=== PATIENT | male | born 1955 ===

== ENCOUNTER → 2017-06-16 | Outpatient (CLI) | payer OTHER ==
[~2017-06-16] VITALS: Ht 172.7 cm; Wt 60.8 kg
[~2017-06-16] MED LIST: AYR SALINE NA14.1 GM NASAL; ZANTAC300 MG PO
== END | disposition home or self-care (01) ==
LOC: OFIC 805 08:40
DX: J38.1 Polyp of vocal cord and larynx (principal); R49.8 Other voice and resonance disorders; J34.2 Deviated nasal septum; J31.0 Chronic rhinitis